=== PATIENT | female | born 1945 | race Caucasian/White ===

== ENCOUNTER 2018-07-09 02:06 | Outpatient (CLI) | payer MEDICARE ==
[~2018-07-09 02:06] MED LIST: ATE25T PO; ATOR10TA87 PO; BETA1TAB18 PO; CALC-336; CHOL20002; HYDR12.522 PO; METF500T7 PO; MULT-1085 PO; POTA8TAB46 PO; ZOL50T PO
== END 2018-07-09 23:59 | disposition home or self-care (01) ==
LOC: DIABETIC 02:06
PROVIDERS: ATTEND Family Medicine
DX: E11.65 Type 2 diabetes mellitus with hyperglycemia (principal); I10 Essential (primary) hypertension; Z79.84 Long term (current) use of oral hypoglycemic drugs; Z88.2 Allergy status to sulfonamides
CPT/HCPCS: G0108

== ENCOUNTER 2021-08-19 23:23 | Emergency (ER) | payer MEDICARE ==
[~2021-08-19] VITALS: Ht 157.5 cm; Wt 69.5 kg
[~2021-08-19 23:23] MED LIST changes: +METF-900 PO; -METF500T7 PO; +SERT-153 PO; -ZOL50T PO
[2021-08-20 01:19] LABS: BASOPHILS % (AUTO) 0.1 % (0-1); EOSINOPHILS % (AUTO) 0.3 % (0-6); HEMATOCRIT 42.6 % (35.0-45.0); HEMOGLOBIN 14.5 g/dl (12.0-16.0); LYMPHOCYTES % (AUTO) 10.9 % (21-51); MEAN CORPUSCULAR HEMOGLOBIN 30.7 PG (27.0-31.0); MEAN CORPUSCULAR VOLUME 90.5 FL (78-98); MEAN PLATELET VOLUME 8.7 FL (7.4-10.4); MONOCYTES # (AUTO) 0.5 X10'3 (0-0.9); MONOCYTES % (AUTO) 5.2 % (2-12); NEUTROPHILS # (AUTO) 7.5 X10'3 (1.8-7.7); NEUTROPHILS % (AUTO) 83.5 % (42-75); PLATELET COUNT 156 X10'3 (140-440); RED BLOOD COUNT 4.71 X10'6 (4.20-5.60)
[2021-08-20 01:24] LABS: ALANINE AMINOTRANSFERASE 46 U/L (12-78); ALBUMIN 3.9 G/DL (3.4-5.0); ALKALINE PHOSPHATASE 92 IU/L (46-116); ANION GAP 12 (8-16); ASPARTATE AMINO TRANSFERASE 16 U/L (10-37); BILIRUBIN,DIRECT 0.1 MG/DL (0-0.3); BILIRUBIN,TOTAL 0.6 MG/DL (0.1-1.0); BLOOD UREA NITROGEN 16 MG/DL (7-18); BUN/CREATININE RATIO 17.4 (6.6-38.0); CALCIUM 9.5 MG/DL (8.5-10.1); CHLORIDE 105 MMOL/L (99-107); CREATININE 0.92 MG/DL (0.40-0.90); GLUCOSE 241 MG/DL (70-104); LIPASE 56 U/L (73-393); POTASSIUM 4.3 MMOL/L (3.5-5.1); SODIUM 144 MMOL/L (135-145); TOTAL CARBON DIOXIDE 27.1 MMOL/L (24-32); TOTAL PROTEIN 7.9 G/DL (6.4-8.2); eGFR 59 ML/MIN
[2021-08-20] MEDS ORDERED: ondansetron 4mg rapidly disintigrating tab PO ONE (01:25)
[2021-08-20] MEDS ORDERED: CEPH-585 PO (02:37)
[2021-08-20] MEDS ORDERED: ONDA4TAB6 PO (02:42)
[2021-08-20 02:59] VITALS: BP 164/89
== END 2021-08-20 03:02 | disposition home or self-care (01) ==
LOC: ER 23:24
DX: R11.2 Nausea with vomiting, unspecified (principal); Z20.822 Contact with and (suspected) exposure to COVID-19; R19.7 Diarrhea, unspecified; E78.00 Pure hypercholesterolemia, unspecified; I10 Essential (primary) hypertension; E11.9 Type 2 diabetes mellitus without complications; Z98.890 Other specified postprocedural states; Z88.2 Allergy status to sulfonamides; Z79.2 Long term (current) use of antibiotics; Z79.899 Other long term (current) drug therapy
CPT/HCPCS: 36415; 80048; 80076; 82948; 83690; 85025; 87635; 99283; C9803

== ENCOUNTER 2023-09-19 23:45 | Emergency (ER) | payer MEDICARE ==
[~2023-09-19] VITALS: Ht 154.9 cm; Wt 68.0 kg
[~2023-09-19 23:45] MED LIST changes: +ONDA4TAB6 PO
[2023-09-20] MEDS ORDERED: aspirin 81mg tab.chew PO ONE (02:05)
[2023-09-20] MEDS ORDERED: ondansetron/PF 4mg/2ml inj IV ONE (02:10)
[2023-09-20 02:26] LABS: BASOPHILS % (AUTO) 0.5 % (0-1); EOSINOPHILS % (AUTO) 0.2 % (0-6); HEMATOCRIT 47.5 % (35.0-45.0); HEMOGLOBIN 16.1 g/dl (12.0-16.0); LYMPHOCYTES % (AUTO) 27.4 % (21-51); MEAN CORPUSCULAR HEMOGLOBIN 31.1 PG (27.0-31.0); MEAN CORPUSCULAR VOLUME 91.6 FL (78-98); MEAN PLATELET VOLUME 8.7 FL (7.4-10.4); MONOCYTES # (AUTO) 0.5 X10'3 (0-0.9); MONOCYTES % (AUTO) 6.9 % (2-12); NEUTROPHILS # (AUTO) 4.8 X10'3 (1.8-7.7); PLATELET COUNT 152 X10'3 (140-440); RED BLOOD COUNT 5.18 X10'6 (4.20-5.60); RED CELL DISTRIBUTION WIDTH 13.7 % (11.5-14.5); WHITE BLOOD COUNT 7.3 X10'3 (4.5-11.0)
[2023-09-20 02:39] LABS: ALANINE AMINOTRANSFERASE 65 U/L (12-78); ALBUMIN 4.5 G/DL (3.4-5.0); ALKALINE PHOSPHATASE 102 IU/L (46-116); ANION GAP 8 (8-16); ASPARTATE AMINO TRANSFERASE 31 U/L (10-37); BLOOD UREA NITROGEN 15 MG/DL (7-18); CALCIUM 9.8 MG/DL (8.5-10.1); CHLORIDE 98 MMOL/L (99-107); CREATININE 0.94 MG/DL (0.40-0.90); GLUCOSE 271 MG/DL (70-104); POTASSIUM 3.3 MMOL/L (3.5-5.1); SODIUM 136 MMOL/L (135-145); TOTAL CARBON DIOXIDE 29.7 MMOL/L (24-32); TOTAL PROTEIN 8.8 G/DL (6.4-8.2); eCRCL 37 ML/MIN; eGFR 58 ML/MIN
[2023-09-20] MEDS ORDERED: magnesium 2GM in 50ml NS 50 ML IV STA (02:39)
[2023-09-20] MEDS ORDERED: diphenhydrAMINE 50 mg/ml inj IV STA (02:40)
[2023-09-20] MEDS ORDERED: haloperidol lactate 5mg/ml inj IVH STA (02:40)
[2023-09-20 02:42] LABS: MAGNESIUM 2.1 MG/DL (1.5-2.4)
[2023-09-20 03:04] LABS: FREE T4 (FREE THYROXINE) 1.03 NG/DL (0.73-1.40); THYROID STIMULATING HORMONE 3.52 ulU/ml (0.34-4.50)
[2023-09-20] MEDS ORDERED: potassium chloride 8mEq ER tablet PO STA (03:34)
[2023-09-20 05:37] VITALS: BP 158/97; PULSE 72; RESP 16; TEMP 98.3; O2SAT 96
== END 2023-09-20 05:39 | disposition home or self-care (01) ==
LOC: ER 23:46
DX: R11.2 Nausea with vomiting, unspecified (principal); R30.0 Dysuria; R35.0 Frequency of micturition; E78.00 Pure hypercholesterolemia, unspecified; I10 Essential (primary) hypertension; E11.9 Type 2 diabetes mellitus without complications; Z88.2 Allergy status to sulfonamides; Z79.899 Other long term (current) drug therapy; Z87.440 Personal history of urinary (tract) infections
CPT/HCPCS: 36415; 71045; 80053; 82948; 83735; 84439; 84443; 84484; 85025; 93005; 96374; 96375; 99285; J1200; J1630; J3475; 99284; A4615

== ENCOUNTER 2024-11-24 11:24 | Emergency (ER) | payer MEDICARE ==
[~2024-11-24] VITALS: Ht 157.5 cm; Wt 67.6 kg
[~2024-11-24 11:24] MED LIST changes: +MECL-302 PO; +ONDA-243 PO
[2024-11-24 11:30] VITALS: TEMP 97
[2024-11-24 12:03] LABS: BILIRUBIN,URINE SMALL (Neg); CLARITY,URINE CLOUDY (Clear); COLOR,URINE YELLOW (Yellow); GLUCOSE, URINE NEGATIVE (Neg); KETONES,URINE TRACE mg/dl (Neg); LEUKOCYTE ESTERASE ,URINE MODERATE (Neg); OCCULT BLOOD,URINE LARGE (Neg); PROTEIN,URINE 100 mg/dl (Neg)
[2024-11-24 12:18] LABS: UA COLLECTION TYPE CLN CATCH MIDSTREAM
[2024-11-24 12:19] LABS: NITRITES, URINE NEGATIVE (Neg); WBC,URINE TNTC /HPF (0-4)
[2024-11-24 12:20] LABS: BACTERIA,URINE 2+ /HPF (Neg); MUCUS STRANDS FEW /LPF (Neg); RBC,URINE TNTC /HPF (0-2); SQUAMOUS EPITHELIAL CELL,UR FEW /LPF (FEW)
[2024-11-24 12:21] LABS: TRANSITIONAL EPI CELLS,URINE FEW /HPF
[2024-11-24] MEDS: CefTRIAXone 2gm/D5W 50ml BAG 50 ML IV ONE (14:34)
[2024-11-24 14:49] LABS: HEMATOCRIT 42.7 % (35.0-45.0); HEMOGLOBIN 14.5 g/dl (12.0-16.0); MEAN CORPUSCULAR HEMOGLOBIN 31.1 PG (27.0-31.0); MEAN CORPUSCULAR HGB CONC 34.1 g/dL (33.0-36.5); MEAN CORPUSCULAR VOLUME 91.4 FL (78-98); PLATELET COUNT 144 X10'3 (140-440); RED BLOOD COUNT 4.67 X10'6 (4.20-5.60); RED CELL DISTRIBUTION WIDTH 13.2 % (11.5-14.5); WHITE BLOOD COUNT 9.1 X10'3 (4.5-11.0)
[2024-11-24 14:50] LABS: BASOPHILS % (AUTO) 0.3 % (0-1); EOSINOPHILS # (AUTO) 0.1 X10'3 (0-0.9); LYMPHOCYTES # (AUTO) 2.2 X10'3 (1.1-4.8); LYMPHOCYTES % (AUTO) 23.9 % (21-51); MEAN PLATELET VOLUME 8.5 FL (7.4-10.4); MONOCYTES # (AUTO) 0.5 X10'3 (0-0.9); MONOCYTES % (AUTO) 5.2 % (2-12); NEUTROPHILS # (AUTO) 6.4 X10'3 (1.8-7.7); NEUTROPHILS % (AUTO) 69.6 % (42-75)
[2024-11-24 15:00] LABS: ALBUMIN 3.6 G/DL (3.4-5.0); ANION GAP 5 (8-16); BLOOD UREA NITROGEN 14 MG/DL (7-18); BUN/CREATININE RATIO 21.9 (10.0-20.0); CALCIUM 8.8 MG/DL (8.5-10.1); CHLORIDE 104 MMOL/L (99-107); CREATININE 0.64 MG/DL (0.40-0.90); GLUCOSE 105 MG/DL (70-104); POTASSIUM 3.7 MMOL/L (3.5-5.1); SODIUM 143 MMOL/L (135-145); TOTAL CARBON DIOXIDE 33.6 MMOL/L (24-32); eCRCL 56 ML/MIN; eGFR 90 ML/MIN
[2024-11-24] MEDS ORDERED: PHEN-786 PO (15:26)
[2024-11-24] MEDS ORDERED: CEPH-585 PO (15:26)
[2024-11-24 15:48] VITALS: BP 163/88; PULSE 80; RESP 14; O2SAT 98
== END 2024-11-24 15:49 | disposition home or self-care (01) ==
LOC: ER 11:24
DX: N39.0 Urinary tract infection, site not specified (principal); E11.9 Type 2 diabetes mellitus without complications; E78.00 Pure hypercholesterolemia, unspecified; I10 Essential (primary) hypertension; Z88.2 Allergy status to sulfonamides
CPT/HCPCS: 36415; 80048; 81001; 83605; 83735; 84145; 85025; 87040; 96365; 99284; J0696; J7030

== ENCOUNTER 2025-05-19 08:20 | Emergency (ER) | payer MEDICARE ==
[~2025-05-19] VITALS: Ht 157.5 cm; Wt 65.5 kg
[~2025-05-19 08:20] MED LIST changes: +ASPI-1071 PO; -ATE25T PO; +ATOR-429 PO; -ATOR10TA87 PO; -BETA1TAB18 PO; +CLOP75TA34 PO; +DULO60CA65 PO; -HYDR12.522 PO; +HYDR25TA5 PO; +LOP25T PO; -MECL-302 PO; +METF-438 PO; -METF-900 PO; -ONDA-243 PO; -ONDA4TAB6 PO; -SERT-153 PO
[2025-05-19 11:23] LABS: LEUKOCYTE ESTERASE ,URINE LARGE (Neg); NITRITES, URINE NEGATIVE (Neg); OCCULT BLOOD,URINE LARGE (Neg)
--- NOTE | 2025-05-19 11:29 | Physician Documentation ---
History of Present Illness General Chief Complaint: Blood in Urine Stated Complaint: BLADDER INFECTION Time Seen by MD: 11:18 Primary Medical Doctor: dr. jerry pcp, dr. jovani reyna Mode of Arrival: POV History of Present Illness Initial Comments The patient is an 79-year-old female with recently diagnosed TIA/stroke who presents with hematuria that she 1st noted about 3:00 a.m. this morning. She has had about four episodes of hematuria this year. She has been treated for UTIs. Medication Reconciliation Allergies: Coded Allergies: Sulfa (Sulfonamide Antibiotics) (Verified Allergy, Intermediate, nausea, SOB, 05/19/25) Scheduled Aspirin (Ecotrin*), 1 TAB PO DAILY Atorvastatin Calcium* (Lipitor*), 1 TAB PO DAILY Cholecalciferol (Vitamin D3) (Vitamin D), 2,000 UNIT DAILY, (Reported) Clopidogrel Bisulfate (Clopidogrel), 75 MG PO DAILY Duloxetine HCl (Duloxetine HCl), 1 CAP PO DAILY, (Reported) Hydrochlorothiazide (Hydrochlorothiazide), 1 TAB PO DAILY, (Reported) Metformin HCl (Metformin HCl), 1 TAB PO DAILY, (Reported) Metoprolol Tartrate* (Lopressor tablet*), 1 TAB PO DAILY, (Reported) Multivitamin (Multi Vitamin Daily), 1 EACH PO DAILY, (Reported) Potassium Chloride (Klor-Con 8), 8 MEQ PO DAILY, (Reported) Scheduled PRN Calcium Carbonate (Calcium), 2,000 MG Q6H PRN for indigestion/dyspepsia, (Reported) Discontinued Medications Atenolol* (Tenormin*), 25 MG PO DAILY, (Reported) Discontinued Reason: patient no longer taking Atorvastatin Calcium* (Lipitor*), 10 MG PO HS, (Reported) Discontinued Reason: patient no longer taking Atorvastatin Calcium* (Lipitor*), 1 TAB PO DAILY, (Reported) Discontinued Reason: Prescription changed Beta-Carotene(A) W-C & E/Min* (Ocuvite Tablet*), 1 TAB PO DAILY, (Reported) Discontinued Reason: patient no longer taking Hydrochlorothiazide* (Microzide*), 12.5 MG PO BID, (Reported) Discontinued Reason: patient no longer taking Meclizine HCl (Meclizine HCl), 1 TAB PO Q8H PRN for dizziness/vertigo Discontinued Reason: patient no longer taking Metformin Hcl* (Metformin ER*), 500 MG PO BID, (Reported) Discontinued Reason: patient no longer taking ONDANSETRON ODT 4mg tablet (Ondansetron Odt), 1 TAB PO Q6H PRN PRN for nausea/vomiting Discontinued Reason: patient no longer taking Ondansetron Hcl (Zofran), 1 TAB PO Q8H Discontinued Reason: patient no longer taking Phenazopyridine Hcl (Pyridium tablet), 1 TAB PO Q8H Discontinued Reason: patient no longer taking Pioglitazone Hcl* (Actos*), 1 TAB PO DAILY, (Reported) Discontinued Reason: patient no longer taking Sertraline HCl (Sertraline HCl), 100 MG PO DAILY, (Reported) Discontinued Reason: patient no longer taking Past Medical History Past Medical History: High Cholesterol, Hypertension, Diabetes Past Surgical History: brain surgery Smoking: Non-Smoker Alcohol Use: None Drug Use: none Lives with: Spouse Lives In: Home Review of Systems ROS A 10 system review is negative except as noted in the HPI. Physical Exam Physical Exam Vital Signs: Temperature: 98.8, Source: Temporal, Heart Rate: 61, Respiratory Rate: 18, BP: 169/90, Pulse Oximetry: 96, Weight: 65.450 Oxygen Flow Rate: 0 Physical Exam Physical Exam Vitals and nursing note reviewed. Constitutional: General: Patient is awake, alert, oriented x 4 in no acute distress and well appearing. Speech is clear and lucid. Appearance: Normal appearance. Patient is not ill-appearing, toxic-appearing or diaphoretic. HENT: Head: Normocephalic and atraumatic. Mouth/Throat: Mouth: Mucous membranes are moist. Pharynx: Oropharynx is clear. Eyes: General: No scleral icterus. Extraocular Movements: Extraocular movements intact. Pupils: Pupils are equal, round, and reactive to light. Neck: Supple, no Kernig or Brudzinski sign. Cardiovascular: Rate and Rhythm: Normal rate and regular rhythm. Heart sounds: No murmur heard. Pulmonary: Effort: No respiratory distress. Breath sounds: No wheezing, rhonchi or rales. Abdominal: General: There is no distension. Palpations: There is no fluid wave, hepatomegaly or mass. Tenderness: There is no abdominal tenderness. There is no guarding. Musculoskeletal: General: No swelling or deformity. Skin: Coloration: Skin is not jaundiced. Findings: No erythema or rash. Neurological: Mental Status: Patient is alert. Progress Results/Orders Results/Orders Orders - BROOKLYN CARNEY MD Ct Abdomen Pelvis (05/19/25 14:12) Cult Urine + [place] [facility] (05/19/25 12:05) Completed Orders - BROOKLYN CARNEY MD Pt Inr (05/19/25 11:25) Cbc/Diff (05/19/25 11:25) CMP (05/19/25 11:25) Ct Abdomen Pelvis (05/19/25 14:12) Ua W/Microscopic, Cult If Ind (05/19/25 11:05) Iohexol 350mg/Ml 100ml (Omnipaque 350mg/ (05/19/25 12:07) Hydrochlorothiazide Tablet (Hydrochlorot (05/19/25 14:50) Metoprolol Tartrate Tablet (Lopressor Ta (05/19/25 14:55) Medications Received in ER Medications (Trade) Dose Ordered Sig/Drea Route PRN Reason Start Time Stop Time Status Last Admin Dose Admin (HYDROchlorothiazide tablet) 25 mg ONCE ONCE PO 05/19/25 14:50 05/19/25 14:51 DC 05/19/25 15:11 25 MG (Lopressor tablet) 25 mg ONCE ONCE PO 05/19/25 14:55 05/19/25 14:56 DC 05/19/25 15:11 25 MG Vital Signs 05/19/25 05/19/25 05/19/25 05/19/25 08:30 11:16 11:16 13:43 Temp 98.8 Pulse 90 61 Resp 18 18 18 16 B/P (MAP) 171/90 169/90 (116) Pulse Ox 97 96 O2 Flow Rate 0 05/19/25 05/19/25 05/19/25 05/19/25 13:44 14:20 14:40 15:11 Pulse 70 75 75 75 Resp 16 16 16 B/P (MAP) 168/101 (123) 193/91 (125) 213/101 (138) Pulse Ox 98 98 98 O2 Flow Rate 0 0 0 05/19/25 16:40 Pulse 56 Resp 12 B/P (MAP) 184/89 (120) Pulse Ox 98 O2 Flow Rate 0 Laboratory Tests Test 05/19/25 11:05 05/19/25 11:44 Urine Specimen Description Cln catch midstream Urine Color Yellow Urine Clarity Slightly cloudy Urine pH 6.0 Urine Specific [place] 1.010 Urine Protein 30 H Urine Glucose (UA) Negative Urine Ketones Negative Urine Occult Blood Large H Urine Nitrite Negative Urine Bilirubin Negative Urine Urobilinogen 0.2 Urine Leukocyte Esterase Large H Urine RBC 3-10 Urine WBC 30-50 H Urine Squamous Epithelial Cells Few Urine Bacteria 2+ Urine Culture Indicated Indicated Volume Urine Centrifuged 10 ml Urine Comment White Blood Count 8.7 Red Blood Count 4.51 Hemoglobin 14.0 Hematocrit 40.8 Mean Corpuscular Volume 90.5 Mean Corpuscular Hemoglobin 31.1 H Mean Corpuscular Hemoglobin Concent 34.3 Red Cell Distribution Width 13.4 Platelet Count 164 Mean Platelet Volume 9.0 Neutrophils (%) (Auto) 64.2 Lymphocytes (%) (Auto) 26.1 Monocytes (%) (Auto) 7.0 Eosinophils (%) (Auto) 1.8 Basophils (%) (Auto) 0.9 Neutrophils # (Auto) 5.6 Lymphocytes # (Auto) 2.3 Monocytes # (Auto) 0.6 Eosinophils # (Auto) 0.2 Basophils # (Auto) 0.1 CBC Comment Prothrombin Time 10.5 INR International Normalized Ratio 1.0 Coagulation Comments Sodium Level 142 Potassium Level 3.3 L Chloride Level 105 Carbon Dioxide Level 31.9 Anion Gap 5 L Blood Urea Nitrogen 18 Creatinine 0.72 Estimated GFR/1.73 m2 78 BUN/Creatinine Ratio 25.0 H Glucose Level 131 H Calcium Level 9.1 Total Bilirubin 0.7 Aspartate Amino Transf (AST/SGOT) 23 Alanine Aminotransferase (ALT/SGPT) 49 Alkaline Phosphatase 77 Total Protein 7.4 Albumin 3.4 Globulin 4.0 Albumin/Globulin Ratio 0.9 L Chemistry Comments Microbiology Date/Time Source Procedure Growth Status 05/19/25 12:05 Urine Clean Catch Midstream Urine Culture - Preliminary Culture received. Resulted Medical Decision Making Findings This 79-year-old female presents with frequent urinary tract infections characterized by gross hematuria over the past year. This is suspicious for a neoplasm although none shows up on her CT urogram. I am going to start her on antibiotics and refer her to Urology. Departure Disposition: 01 HOME / SELF CARE / HOMELESS Impression: Primary Impression: Acute urinary tract infection Additional Impression: Gross hematuria Condition: Stable Referrals: NO PRIMARY CARE PROVIDER (PCP) Prescriptions Cephalexin*Monohydrate* (Keflex*) 500 Mg Capsule 1 CAP PO BID, #20 CAP Prov: BROOKLYN CARNEY MD 05/19/25 Education Educated: Patient, Family Educated regarding: diagnosis, treatment, need for follow up Signature Scribe Signature: . Attestation: . BROOKLYN CARNEY MD May 19, 2025 11:29
[2025-05-19 12:03] LABS: UA COLLECTION TYPE CLN CATCH MIDSTREAM
[2025-05-19 12:04] LABS: SQUAMOUS EPITHELIAL CELL,UR FEW /LPF (FEW)
[2025-05-19 12:07] LABS: MEAN PLATELET VOLUME 9.0 FL (7.4-10.4); RED CELL DISTRIBUTION WIDTH 13.4 % (11.5-14.5)
[2025-05-19 12:12] LABS: INR 1.0 INR
[2025-05-19 12:14] LABS: CREATININE 0.72 MG/DL (0.40-0.90); TOTAL CARBON DIOXIDE 31.9 MMOL/L (24-32); eCRCL 49 ML/MIN; eGFR 78 ML/MIN
--- NOTE | 2025-05-19 15:21 | RADIOLOGY REPORT ---
Exam: CT CT ABDOMEN PELVIS W/WO IV CONTRAST History: Hematuria Comparison Study: None TECHNIQUE: A digital head of academic technology image was obtained. During the uneventful, intravenous administration of contrast material, multislice data acquisition was obtained through the abdomen and pelvis. The data set was subsequently reconstructed into axial images. Images reviewed on a wrist examination is an examination of axial and multiplanar reformations using a variety of window levels and settings. RADIATION DOSE: DLP 2073.58 mGy.cm; CTDI vol 16.16 mGy. Findings: Lungs: The lung bases are clear. Heart: No cardiomegaly or pericardial effusion. Liver: Possible hemangioma near the gallbladder fossa. Gallbladder: Unremarkable. Spleen: Unremarkable Pancreas: Unremarkable Adrenals: Unremarkable Kidneys: Left renal cyst. GI tract: Diverticulosis without evidence of acute diverticulitis. Postsurgical changes of the hepatic flexure. : Unremarkable. No enhancing masses in the urinary bladder. Vasculature: Unremarkable Lymphadenopathy: Absent Peritoneum: No ascites Musculoskeletal: Mild multilevel degenerative changes of the thoracolumbar spine. Limbus vertebra of L3. Soft tissues: Unremarkable Impression: 1. No acute abdominopelvic abnormalities. 2. No definite renal or urinary bladder masses. Correlate with cystoscopy and urinalysis as clinically indicated. 3. Diverticulosis without evidence of acute diverticulitis.
[2025-05-19] MEDS ORDERED: CEPH-585 PO (16:55)
[2025-05-19 17:03] VITALS: BP 180/80; PULSE 60; RESP 16; TEMP 98.7; O2SAT 98
== END 2025-05-19 17:04 | disposition home or self-care (01) ==
LOC: ER 08:21
DX: N39.0 Urinary tract infection, site not specified (principal); R31.0 Gross hematuria; E78.00 Pure hypercholesterolemia, unspecified; E11.9 Type 2 diabetes mellitus without complications; I10 Essential (primary) hypertension; Z88.2 Allergy status to sulfonamides; Z79.82 Long term (current) use of aspirin; Z79.899 Other long term (current) drug therapy
CPT/HCPCS: 74178; 80053; 81001; 85025; 85610; 87088; 99285; Q9967